=== PATIENT | female | born 1975 ===

== ENCOUNTER 2024-06-15 06:40 | Day surgery (SDC) | payer OTHER ==
[~2024-06-15 06:40] MED LIST: D3-200050 MCG PO; HYDROCHLOROTHIA50 MG PO; IRBESARTAN150 MG PO; ROSUVASTATIN CA20 MG PO
[2024-06-15] MEDS ORDERED: POVIDONE-IODINE 118 ML BOTT TOP ONE (09:30)
[2024-06-15] MEDS ORDERED: CEFTRIAXONE SODIUM 2,000 MG VIAL IV ONE (09:30)
[2024-06-15] MEDS ORDERED: LIDOCAINE HCL 1%/EPINEPHRINE 20ML VIAL IJ ONE (09:30)
[2024-06-15] MEDS ORDERED: METROnidazole 500 MG TABLET PO ONE (09:30)
[2024-06-15] MEDS ORDERED: BUPIVACAINE HCL/PF 0.25% 30ML VIAL InF ONE (09:30)
[2024-06-15] MEDS ORDERED: DIBUCAINE 15 GM OINT..GM. TUBE TOP ONE (09:30)
[2024-06-15] MEDS ORDERED: HEMOSTATIC MATRIX 1 KIT KIT TOP ONE (09:30)
== END 2024-06-15 14:00 | disposition home or self-care (01) ==
LOC: CIR.AMB 06:40
PROVIDERS: ATTEND Colon & Rectal Surgery
DX: K64.2 Third degree hemorrhoids (principal); K64.4 Residual hemorrhoidal skin tags; I10 Essential (primary) hypertension; J44.9 Chronic obstructive pulmonary disease, unspecified; E78.5 Hyperlipidemia, unspecified